=== PATIENT | male | born 1985 | race Caucasian/White ===

== ENCOUNTER 2019-06-13 16:29 | Emergency (ER) | payer BC, OTHER ==
[2019-06-13 17:26] LABS: ABS Basophils 0.1 10^3/ul (0-0.2); ABS Eosinophils 0.1 10^3/ul (0-0.6); ABS Monocytes 0.5 10^3/ul (0-0.8); ABS Neutrophils 3.9 10^3/ul (1.5-7.7); Eosinophil % 1.4 %; Hematocrit 44 % (42-52); Hemoglobin 15.2 g/dL (14.0-18.0); Lymphocyte % 30.4 %; Mean Corpuscular HGB Conc 35 g/dL (31-36); Mean Corpuscular Hemoglobin 30 pg (27-31); Mean Corpuscular Volume 85 fL (80-94); Mean Platelet Volume 8.9 fL (7.4-10.4); Nucleated Red Blood Cells % 0.2; Platelet Count 178 10^3/uL (150-450); Red Blood Count 5.13 10^6 /uL (4.18-5.48); Red Cell Distribution Width 13 % (10-15); White Blood Count 6.5 10^3/uL (3.5-10.8)
[2019-06-13 17:32] LABS: INR 1.01 (0.82-1.09)
[2019-06-13 17:47] LABS: Albumin 5.4 g/dL (3.2-5.2); Albumin/Globulin Ratio 1.9 (1-3); BUN/Creatinine Ratio 19.8 (8-20); Calcium 10.3 mg/dL (8.6-10.3); EGFR African American 102.9 (>60); EGFR Non-African American 85.1 (>60); Globulin 2.8 g/dL (2-4); Potassium 4.4 mmol/L (3.5-5.0); Total Bilirubin 0.4 mg/dL (0.2-1.0); Total Protein 8.2 g/dL (6.4-8.9)
[2019-06-13 17:49] LABS: Troponin I 0.01 ng/mL (<0.03)
--- NOTE | 2019-06-13 19:09 | ED ---
HPI Chest Pain - HPI Summary HPI Summary: Patient is a 34 y/o M presenting to [facility] with complaints of left-sided chest pain. He describes the pain as mild, intermittent, and pressure-like. 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 Episodes vary in duration. He denies nausea, SOB, neck pain, arm pain. No aggravating or alleviating factors noted. He denies previous similar episodes. No daily medications reported. No FMHx of cardiac disease. He is not followed by a PCP currently. Home medications and allergies are reviewed. NK [No Home Medications Reported] 06/13/19 [History Confirmed 06/13/19] - History of Current Complaint Chief Complaint: EDChestPainROMI Time Seen by Provider: 06/13/19 18:03 Hx Obtained From: Patient Timing: Intermittent Initial Severity: Mild Current Severity: None Pain Intensity: 0 Pain Scale Used: 0-10 Numeric Chest Pain Location: Left Anterior Character: Pressure/Squeezing Aggravating Factor(s): Nothing Alleviating Factor(s): Nothing Associated Signs and Symptoms: Positive: Chest Pain, Other: - negative - arm and neck pain. Negative: Shortness of Breath, Nausea - Allergy/Home Medications Allergies/Adverse Reactions: Allergies Allergy/AdvReac Type Severity Reaction Status Date / Time No Known Allergies Allergy Verified 06/13/19 16:39 Home Medications: Home Medications NK [No Home Medications Reported] 06/13/19 [History Confirmed 06/13/19] PMH/Surg Hx/FS Hx/Imm Hx Endocrine/Hematology History: Denies: Hx Diabetes Cardiovascular History: Denies: Hx Hypertension Infectious Disease History: No Infectious Disease History: Denies: Traveled Outside the [place] in Last 30 Days - Family History Known Family History: Negative: Cardiac Disease - Social History Alcohol Use: None Substance Use Type: Reports: None Smoking Status (MU): Never Smoked Tobacco Review of Systems Positive: Chest Pain Negative: Shortness Of Breath Negative: Nausea Negative: Myalgia - no neck or arm pain All Other Systems Reviewed And Are Negative: Yes Physical Exam - Summary Physical Exam Summary: Constitutional: Well-developed, Well-nourished, Alert. (-) Distressed Skin: Warm, Dry HENT: Normocephalic; Atraumatic Eyes: Conjunctiva normal Neck: Musculoskeletal ROM normal neck. (-) JVD, (-) Stridor, (-) Nuchal rigidity Cardio: Rhythm regular, rate normal, Heart sounds normal; Intact distal pulses; Radial pulses are 2+ and symmetric. (-) Murmur Pulmonary/Chest wall: Effort normal. (-) Respiratory distress, (-) Wheezes, (-) Rales Abd: Soft, (-) tenderness, (-) Distension, (-) Guarding, (-) Rebound Musculoskeletal: (-) Edema Lymph: (-) Cervical adenopathy Neuro: Alert, Oriented x3 Psych: Mood and affect Normal Triage Information Reviewed: Yes Vital Signs On Initial Exam: Initial Vitals Temp Pulse Resp BP Pulse Ox 98.6 F 87 18 139/81 100 06/13/19 16:38 06/13/19 16:38 06/13/19 16:38 06/13/19 16:38 06/13/19 16:38 Vital Signs Reviewed: Yes Procedures - Sedation Patient Received Moderate/Deep Sedation with Procedure: No Diagnostics - Vital Signs Vital Signs Temp Pulse Resp BP Pulse Ox 06/13/19 16:38 98.6 F 87 18 139/81 100 - Laboratory Lab Results: Lab Results 06/13/19 06/13/19 06/13/19 Range/Units 17:17 17:17 17:17 WBC 6.5 (3.5-10.8) 10^3/uL RBC 5.13 (4.18-5.48) 10^6 /uL Hgb 15.2 (14.0-18.0) g/dL Hct 44 (42-52) % MCV 85 (80-94) fL MCH 30 (27-31) pg MCHC 35 (31-36) g/dL RDW 13 (10-15) % Plt Count 178 (150-450) 10^3/uL MPV 8.9 (7.4-10.4) fL Neut % (Auto) 59.5 % Lymph % (Auto) 30.4 % [place] % (Auto) 7.5 % Eos % (Auto) 1.4 % Baso % (Auto) 1.2 % Absolute Neuts (auto) 3.9 (1.5-7.7) 10^3/ul Absolute Lymphs (auto) 2.0 (1.0-4.8) 10^3/ul Absolute Monos (auto) 0.5 (0-0.8) 10^3/ul Absolute Eos (auto) 0.1 (0-0.6) 10^3/ul Absolute Basos (auto) 0.1 (0-0.2) 10^3/ul Absolute Nucleated RBC 0.0 10^3/ul Nucleated RBC % 0.2 INR (Anticoag Therapy) 1.01 (0.82-1.09) Sodium 138 (135-145) mmol/L Potassium 4.4 (3.5-5.0) mmol/L Chloride 104 (101-111) mmol/L Carbon Dioxide 27 (22-32) mmol/L Anion Gap 7 (2-11) mmol/L BUN 20 (6-24) mg/dL Creatinine 1.01 (0.67-1.17) mg/dL Est GFR ( Amer) 102.9 (>60) Est GFR (Non-Af Amer) 85.1 (>60) BUN/Creatinine Ratio 19.8 (8-20) Glucose 99 (70-100) mg/dL Calcium 10.3 (8.6-10.3) mg/dL Total Bilirubin 0.40 (0.2-1.0) mg/dL AST 34 (13-39) U/L ALT 65 H (7-52) U/L Alkaline Phosphatase 41 (34-104) U/L Troponin I 0.01 (<0.03) ng/mL Total Protein 8.2 (6.4-8.9) g/dL Albumin 5.4 H (3.2-5.2) g/dL Globulin 2.8 (2-4) g/dL Albumin/Globulin Ratio 1.9 (1-3) Result Diagrams: 06/13/19 17:17 06/13/19 17:17 Lab Statement: Any lab studies that have been ordered have been reviewed, and results considered in the medical decision making process. - Radiology CXR Radiology Interpretation Completed By: ED Physician Summary of Radiographic Findings: No acute process, pending official report. - EKG 1636 Cardiac Rate: NL - rate of 81 BPM EKG Rhythm: Sinus Rhythm Summary of EKG Findings: EKG showed NSR with rate of 81 BPM, normal axis, normal intervals, no acute ischemic changes, no STEMI. ED physician has reviewed and interpreted this EKG. Chest Pain Course/Dx - Course Course Of Treatment: 34-year-old male presents with intermittent chest pain at rest. VSS NAD. Well appearing, no current CP. Chest Pain DDX: The patient is well appearing, with stable vitals. Given the patient's clinical presentation, highest on differential is atypical CP. Although less likely, differential also includes the following: --Pneumothorax: Equal breath sounds, story inconsistent since gradual onset of symptoms. CXR shows no evidence of pneumothorax. Unlikely. --Cardiac tamponade: The history and physical are not concerning for tamponade. No Pulsus Paradoxus, no tachypnea. Unlikely. -- Mediastinitis or esophageal rupture: The history is not consistent, as the patient has had no recent history of significant wretching, instrumentation, or mediastinal surgeries. Unlikely. --Aortic dissection: The patient does not describe the classical tearing chest pain radiating into the back, and the CXR does not show mediastinal widening or other signs of aortic dissection. Unlikely. --PE: Vitals wnl (not hypoxic, tachycardic or tachypneic). PERC neg. --ACS: The initial EKG shows no ischemic changes. The initial troponin is not elevated. Heart score - HEART Score. Based on a HEART score of 0 the patient has a low risk (<2% chance) of major adverse cardiac event within the next 6 weeks. I explained to the patient that based on the work-up today, her risk of heart attack is low and that he/she will be discharged with outpatient follow- up. Strict return precautions were discussed regarding worsening chest pain, new / atypical pain, shortness of breath, or any other serious concerns. Patient endorsed understanding and has no questions at this time. - Diagnoses Provider Diagnoses: Chest pain Discharge ED - Sign-Out/Discharge Documenting (check all that apply): Patient Departure - discharge - Discharge Plan Condition: Stable Disposition: HOME Patient Education Materials: Chest Pain (ED) Referrals: [facility] [Outside] - 3 Days Additional Instructions: You were seen in the emergency department for chest pain. Your EKG (heart tracing), labs and chest x-ray did not show any cause for pain. Important that you follow up with you primary care doctor in the next 1-2 days (or follow up in our clinic) to possibly schedule an outpatient stress test. Please return to the emergency department for continued chest pain, trouble breathing, passing out, or if you're concerned. - Billing Disposition and Condition Condition: STABLE Disposition: Home - Attestation Statements Document Initiated by Kenisha: Yes Documenting Scribe: CONRADO PAREKH Provider For Whom Kenisha is Documenting (Include Credential): MAGALI CORONADO MD Scribe Attestation: I, CONRADO PAREKH, scribed for MAGALI CORONADO MD on 06/13/19 at 2136. Scribe Documentation Reviewed: Yes Provider Attestation: The documentation as recorded by the CONRADO solis accurately reflects the service I personally performed and the decisions made by , MAGALI CORONADO MD Status of Scribe Document: Viewed
[2019-06-13 19:38] VITALS: BP 125/76
== END 2019-06-13 19:37 | disposition home or self-care (01) ==
LOC: ED 16:29
DX: R07.9 Chest pain, unspecified (principal)
CPT/HCPCS: 36415; 71046; 80053; 84484; 85025; 85610; 93005; 99282